=== PATIENT | female | born 1960 | race Caucasian/White ===

== ENCOUNTER 2018-04-09 03:26 | Emergency (ER) | payer OTHER ==
[2018-04-09] MEDS ORDERED: PROPOFOL 100 ML (03:44)
[2018-04-09 04:10] LABS: WHITE BLOOD COUNT 24.6 10^3/ul (4.8-10.8)
[2018-04-09 04:10] LABS: ABNORMAL IP MESSAGE 1; HEMATOCRIT 35.5 % (37.0-47.0); HEMOGLOBIN 11.5 g/dl (12.0-16.0); MEAN CORPUSCULAR HEMOGLOBIN 31.6 pg (29.0-33.0); MEAN CORPUSCULAR HGB CONC 32.4 g/dl (32.0-37.0); MEAN CORPUSCULAR VOLUME 97.5 fl (82.0-101.0); MEAN PLATELET VOLUME 10.9 fl (7.4-10.4); PLATELET COUNT 378 10^3/UL (140-415); RED BLOOD COUNT 3.64 10^6/ul (4.20-5.40)
[2018-04-09 04:28] LABS: ANION GAP 10 (8-16); BLOOD UREA NITROGEN 8 mg/dl (7-20); CARBON DIOXIDE 21 mmol/L (21-31); CHLORIDE 115 mmol/L (97-110); CREATININE 0.55 mg/dl (0.44-1.00); GLUCOSE 161 mg/dl (70-220); SODIUM 143 mmol/L (135-144)
[2018-04-09 04:29] LABS: INR 0.96; PARTIAL THROMBOPLASTIN TIME 27.6 Sec (25.0-35.0); PROTIME 12.9 Sec (11.9-14.9)
[2018-04-09] MEDS: SOD CHLORIDE 0.9% 1,000 ML IV ×3 (04:30→07:46)
[2018-04-09 04:31] LABS: ADD MAN DIFF? YES; POSITIVE DIFF @See below
[2018-04-09 04:38] LABS: POTASSIUM 2.7 mmol/L (3.5-5.1)
[2018-04-09 04:40] LABS: TROPONIN-I < 0.012 ng/ml (0.000-0.120)
[2018-04-09] MEDS: ROCURONIUM 50 MG INJ IV (04:40)
[2018-04-09 04:51] LABS: AADO2 Arterial 177.4 mmHg (7.0-24.0); Allen Test ACCEPTAB; Arterial Blood Gas Oxygen Sat 98.1 mmHG (95.0-98.0); Arterial COHb 0.3 % (0.0-3.0); Arterial Fraction of Oxyhgb 97.8 % (93.0-99.0); Arterial HCO3 20.6 mmol/L (22.0-26.0); Arterial MetHb 0 % (0.0-1.5); Arterial Total Hemglobin 10.9 g/dl (12.0-18.0); Arterial pCO2 40.4 mmhg (35-45); MODE VENT - AC; Site Right Radial
[2018-04-09] MEDS: FENTAnyl (DRIP) 1000 mcg/100mL 100 ML IV (04:56)
[2018-04-09] MEDS: PROPOFOL 100 ML IV (05:09)
[2018-04-09 05:40] LABS: EOSINOPHILS % (M) 3 % (0-7); LYMPHOCYTES #M 9.5 10^3/ul (0.8-2.9); LYMPHOCYTES % (M) 39 % (15-51); METAMYELOCYTES #M 0.2 10^3/ul (0.0-0.0); METAMYELOCYTES %M 1 % (0-0); MONOCYTE #M 0.4 10^3/ul (0.3-0.9); MONOCYTES % (M) 2 % (0-11); MYELOCYTES #M 0.2 10^3/ul (0.0-0.0); MYELOCYTES % (M) 1 % (0-0); PLATELET ESTIMATE NORMAL; REACTIVE LYMPHOCYTES #M 0.2 10^3/ul (0.0-0.0); REACTIVE LYMPHOCYTES% (M) 1 % (0-0); SEGMENTED NEUTROPHILS (M) % 53 % (39-77); SMUDGE%M 8 % (0-0)
[2018-04-09] MEDS ORDERED: niCARdipine-NS 0.1MG/ML DRIP 200 ML IV (06:09)
[2018-04-09] MEDS ORDERED: MIDAZOLAM (DRIP) 50 mg/50 mL 50 ML IV (06:09)
[2018-04-09] MEDS ORDERED: DOPamine-D5W 1.6 MG/ML 250 ML IV (07:17)
[2018-04-09] MEDS ORDERED: MAGNESIUM SULFATE 1 GM/D5W 100 ML IVPB (07:30)
[2018-04-09] MEDS ORDERED: POTASSIUM CHLORIDE 50 ML IVPB (07:30)
[2018-04-09] MEDS ORDERED: MIDAZOLAM 1 MG/ML 2 ML INJ IV (08:00)
== END 2018-04-09 08:10 | disposition short-term general hospital (02) ==
LOC: E/R 03:26
DX: I60.9 Nontraumatic subarachnoid hemorrhage, unspecified (principal); I21.3 ST elevation (STEMI) myocardial infarction of unspecified site; I10 Essential (primary) hypertension; F17.210 Nicotine dependence, cigarettes, uncomplicated; R40.2122 Coma scale, eyes open, to pain, at arrival to emergency department; R40.2352 Coma scale, best motor response, localizes pain, at arrival to emergency department; R40.2222 Coma scale, best verbal response, incomprehensible words, at arrival to emergency department; Z79.01 Long term (current) use of anticoagulants
CPT/HCPCS: 31500; 36415; 36600; 70450; 71045; 80048; 82803; 82962; 84484; 85025; 85610; 85730; 93005; 94002; 99291-25